=== PATIENT | female | born 1995 | race Caucasian/White ===

== ENCOUNTER → 2016-08-27 | Outpatient (CLI) | payer BC, MEDICAID ==
--- OUTSIDE RECORDS SUMMARY | 2016-08-27 08:21 | XMS REPORT ---
Author Author SHAHZAD TOM [facility] [place] eClinicalWorks Address Unknown Phone Unavailable Care Team Providers Care Physician Interventional Cardiologist Name Role Phone SHAHZAD TOM Unavailable Allergies No Known Allergies Problems Problem Type Condition Code Onset Dates Condition Status Assessment Flu vaccine need Z23 Active Medications No Known Medications Procedures Procedure Coding System Code Date SINGLE IMMUNIZATION ADMIN CPT-4 55376 Jun 08, 2015 FLUARIX QUAD (3 & UP)-GSK CPT-4 08843 Jun 08, 2015 Results No Known Results Immunizations Vaccine Administration Date FLUARIX QUAD (3 & UP)-GSK-2014Jun 08, 2015 Summary Purpose eClinicalWorks Submission
--- NOTE | 2016-08-28 08:12 | ELECTROENCEPHALOPATHY REPORT ---
PROCEDURE PHYSICIAN: SYDNIE LANIER DATE OF PROCEDURE: 08/27/2016 Ms. Sherry Maza is a 21-year-old female who has had fainting spells since age 12 years. On 07/06/2016, patient felt like she was going to faint. She became dizzy, clammy and had a witnessed seizure by her lasting approximately 30 seconds. This study was requested to evaluate for epileptiform activity. The background rhythm consisted of 10 Hz, 60 to 90 microvolts in amplitude, bilaterally symmetrical over the vortex region which was reactive to eye opening. Intermix was no epileptiform activity. Some movement artifacts were present. The patient was awake, drowsy and asleep during this recording. Hyperventilation was performed and there was no build-up of diffuse or focal slow wave activity. Intermittent photic stimulation was done at various flash frequencies and no photic driving response was seen. IMPRESSION: This EEG is within normal limits in awake and sleepy states. No clear epileptiform activity is seen. A normal EEG does not exclude the diagnosis of seizure or epilepsy. Job ID: [id number] Dictated Date: 08/28/2016 07:45:08 Clock Assembler Date: 08/28/2016 08:10:23 / [email or web address]
== END ==
LOC: RT 08:17
PROVIDERS: ATTEND Psychiatry & Neurology Neurology
DX: R56.9 Unspecified convulsions (principal)

== ENCOUNTER 2017-02-06 16:05 | Inpatient (IN) | payer BC, MEDICAID ==
[~2017-02-06] VITALS: Ht 157.5 cm; Wt 83.9 kg
[2017-02-06] VITALS (24 sets, daily range): BP systolic 110–162; BP diastolic 62–92
[2017-02-06] MEDS ORDERED: D5 LR IV SOLUTION 1,000 ML IV ONE (16:39)
[2017-02-06] MEDS ORDERED: NS (IVPB) 50 ML ONE (16:39)
[2017-02-06] MEDS ORDERED: AMPICILLIN 2000 MG INJECTION (IM/IV) ONE (16:39)
[2017-02-06] MEDS: D5 LR IV SOLUTION 1,000 ML IV SCH (17:15)
[2017-02-06] MEDS: AMPICILLIN INJECTION 2,000 MG in NS (IVPB) 50 ML IV SCH ×2 (17:15→20:35)
[2017-02-06] MEDS ORDERED: OXYTOCIN/NORMAL SALINE 500 ML IV SCH (17:34)
[2017-02-06 17:42] LABS: BASOPHILS % (AUTO) 0 % (0-10); EOSINOPHILS # (AUTO) 0.1 10^3/uL (0.0-0.3); EOSINOPHILS % (AUTO) 1 % (0-10); LYMPHOCYTES # (AUTO) 2.8 X 10^3 (1.0-4.0); LYMPHOCYTES % (AUTO) 19 % (12-44); MEAN CORPUSCULAR HEMOGLOBIN 30 PG (25-34); MEAN CORPUSCULAR HGB CONC 33 G/DL (32-36); MEAN CORPUSCULAR VOLUME 92 FL (80-99); MEAN PLATELET VOLUME 11.2 FL (7.4-10.4); MONOCYTES # (AUTO) 1.2 X 10^3 (0.0-1.0); MONOCYTES % (AUTO) 8 % (0-12); NEUTROPHILS # (AUTO) 10.6 X 10^3 (1.8-7.8); NEUTROPHILS % (AUTO) 72 % (42-75); PLATELET COUNT 277 10^3/uL (130-400); RED BLOOD COUNT 4.02 10^6/uL (4.35-5.85); RED CELL DISTRIBUTION WIDTH 14.2 % (10.0-14.5); WHITE BLOOD COUNT 14.6 10^3/uL (4.3-11.0)
[2017-02-06] MEDS ORDERED: MINERAL OIL CONCENTRATE 99.9% 15 ML UDC TOP PRN (17:45)
[2017-02-06] MEDS ORDERED: LIDOCAINE/EPI 1%-1:200,000 (XYLOCAINE) 30 ML VIAL INJ PRN (17:45)
[2017-02-06] MEDS ORDERED: LACTATED RINGERS 1,000 ML IV ONE ×2 (18:05→20:36)
[2017-02-06] MEDS ORDERED: SUFENTA 0.6MCG/ML BUPIVA 0.125 100 ML ONE (18:05)
[2017-02-06 18:10] LABS: BAND NEUTROPHILS 68 %; BASOPHILS % (MANUAL) 0 %; EOSINOPHILS % (MANUAL) 1 %; LYMPHOCYTES % (MANUAL) 25 %; NEUTROPHILS % (MANUAL) 3 %
[2017-02-06] MEDS ORDERED: NALOXONE 0.4 MG/ML 1 ML (NARCAN) VIAL IM PRN (20:45)
[2017-02-06] MEDS ORDERED: ONDANSETRON 4 MG/2 ML (SDV) Z0FRAN IV PRN (20:45)
[2017-02-06] MEDS ORDERED: diphenhydrAMINE 50 MG/ML INJ (BENADRYL) IV PRN (20:45)
[2017-02-06] MEDS ORDERED: NALOXONE 0.4 MG/ML 1 ML (NARCAN) VIAL IV PRN (20:45)
[2017-02-06] MEDS ORDERED: EPIDURAL (SUFENTA 0.6MCG/ML BUPIVA 0.125%) 100 ML BAG EPI PRN (20:45)
[2017-02-06] MEDS ORDERED: CATHETER FLUSH 10 ML SYR IV PRN (20:45)
[2017-02-06] MEDS: OXYTOCIN/NORMAL SALINE 500 ML IV SCH (20:52)
[2017-02-06] MEDS: AMPICILLIN INJECTION 1,000 MG in NS (IVPB) 50 ML IV SCH (21:04)
[2017-02-06] MEDS ORDERED: CATHETER FLUSH 10 ML SYR IV SCH (22:00)
[2017-02-07] VITALS (44 sets, daily range): BP systolic 91–135; BP diastolic 47–83
[2017-02-07] MEDS: AMPICILLIN INJECTION 1,000 MG in NS (IVPB) 50 ML IV SCH (01:18)
[2017-02-07] MEDS: D5 LR IV SOLUTION 1,000 ML IV SCH (01:26)
[2017-02-07] MEDS ORDERED: OXYTOCIN/NORMAL SALINE 500 ML IV SCH (03:32)
--- NOTE | 2017-02-07 03:38 | OB Labor & Delivery Record ---
L&D History Date of Service Date of Service: Feb 07, 2017 History Expected Date of Delivery: Feb 13, 2017 Hx : 3 Hx Para: 1 Complications Events: Routine care Operative Indications (Cesarea: N/A-Vaginal Delivery Intrapartal Events: None L&D Stage1 Monitors and Tracing Monitor Mode: External Heart Rate: 135 Monitor Accelerations: Uniform Monitor Decelerations: Variable Station: -2 Mcc Variability: Average (6-10) Short Term Variability: Present Presentation: Vertex Vital Signs VS - Last 72 Hours, by Label 02/06/17 02/06/17 02/06/17 02/06/17 16:20 17:30 18:00 18:28 Temp 99.9 Pulse 117 99 99 103 Resp 18 18 18 18 B/P (MAP) 121/67 115/72 117/73 130/80 Pulse Ox 100 O2 Delivery Room Air Room Air Room Air Room Air 02/06/17 02/06/17 02/06/17 02/06/17 18:30 18:32 18:37 18:38 Pulse 102 113 94 88 Resp 18 18 18 18 B/P (MAP) 130/80 141/92 123/79 128/78 Pulse Ox 98 100 99 O2 Delivery Room Air Room Air Room Air Room Air 02/06/17 02/06/17 02/06/17 02/06/17 18:45 19:00 19:30 20:00 Temp 98.0 Pulse 107 108 123 110 Resp 18 18 18 18 B/P (MAP) 162/65 114/64 111/66 Pulse Ox 99 99 100 100 O2 Delivery Room Air Room Air Room Air Room Air 02/06/17 02/06/17 02/06/17 02/06/17 20:30 21:00 21:15 21:30 Pulse 100 110 111 110 Resp 18 18 18 18 B/P (MAP) 128/71 118/65 136/62 128/69 Pulse Ox 100 99 98 99 O2 Delivery Room Air Room Air Room Air Room Air 02/06/17 02/06/17 02/06/17 02/07/17 21:45 22:00 22:15 02:42 Pulse 107 110 100 91 Resp 18 18 18 18 B/P (MAP) 114/72 126/79 128/76 115/75 Pulse Ox 99 98 99 99 O2 Delivery Room Air Room Air Room Air Room Air Rupture of Membranes Spontaneous Ruture of Membrane: Yes Amniotic Membrane Rupture Time: 444 Amniotic Fluid Membrane Tests: Nitrazine Positive Vaginal Bleeding Description: Normal Show Induction/Anesthesia Epidural Cath Placement - Time: 1836 Progress/Notes Patient SROM 0445 and presented to L &D at 4 pm after awaiting contraction pattern to start. GBS + urine, started on amp. After 4 hrs of first dose pitocin augmentation was used due to dysfunctional contraction pattern. L&D Stage2 Stage Two Stage II Date: Feb 07, 2017 Monitors and Tracing Monitor Mode: External Heart Rate: 135 Monitor Accelerations: Uniform Monitor Decelerations: Variable Mcc Variability: Average (6-10) Short Term Variability: Present Position: Right Occiput Anterior Presentation: Vertex Cord Descript/Complications Cord Vessel Description: 3 Vessels Delivery Type Delivery Method: Spontaneous Vaginal Anterior Shoulder: Right Episiotomy/Perineal Laceration Laceraction(s)/Extensions: Yes Episiotomy Description: Midline, 1st degree (perineal and clitoral lacerations) Location Modifier: Medial Degree (describe repair) both repaired using 3-0 vicryl rapide in normal fashion Condition of Delivery 1 minute Comment: 8 5 minute Comment: 9 Condition of Condition of : Living Exam: No Observed Abnormalities live male weight 7lbs 6 oz Resuscitation Resuscitation: N/A - Spontaneous Resp L&D Stage3 Stage Three Stage III Date: Feb 07, 2017 Pictocin Pitocin Administration Comment: 2151-pitocin wide open at delivery of placenta Placenta Delivery Placenta Delivery: Spontaneous Delivery Summary Summary blood loss >1000ml: No Vaginal blood loss >500ml: No 350 Attending at delivery: Miah Smith DO Condition of Delivery Examined: Cervix Examined, Uterus Explored Post Hemorrhage: No Condition of Mother stable Condition of (s) stable MIAH SMITH DO Feb 07, 2017 03:38
--- NOTE | 2017-02-07 03:40 | History & Physical-OB ---
OB - Chief Complaint & HPI Date/Time Date of Admission: Date of Admission: Feb 06, 2017 at 16:40 Time Seen by Provider: 16:30 Chief Complaint/History OB-Reason for Admission/Chief: Rupture of Membranes Hx : 3 Hx Para: 1 Expected Date of Delivery: Feb 13, 2017 Gestational Age in Weeks: 39 Gestational Age in Days: 0 Admission Nurse Assessment Rev: Yes History of Labs B pos Antibody neg RI RPR NR HBsAg NR HIV NR GC neg GBS + urine cx Allergies and Home Medications Allergies Coded Allergies: No Known Drug Allergies (Unverified , 02/06/17) OB - History Hx of Present Care: Yes Ultrasounds: Normal mid trimester US Obstetrical Complications: None Medical Complications: None Obstetrical History Hx : 3 Hx Para: 1 Patient Past Medical History hx of SVT Social History/Family History Recent Infectious Disease Expo: No OB - Admission Exam Physical Exam Date Seen by Provider: Feb 07, 2017 Time Seen by Provider: 17:30 Vitals: Vital Signs 02/06/17 02/07/17 20:00 02:42 Temp 98.0 Pulse 91 Resp 18 B/P (MAP) 115/75 Pulse Ox 99 O2 Delivery Room Air HEENT: NCAT Heart: Rhythm Normal Lungs: Clear Abdomen: Gravid Extremities: Normal Reflexes: Normal Cervical Dilatation: 5cm Effacement: 75% Station: -1 Membranes: Ruptured Amniotic Fluid: Clear Heart Rate: 130's Accelerations: Accelerations Present Decelerations: No Decelerations Short Term Variability: Present Care Home Variability: Average (6-25) Contractions on Admission: 6-10 Minutes Apart Intensity: Mild Labs Laboratory Tests Test 02/06/17 17:30 Range/Units White Blood Count 14.6 H 4.3-11.0 10^3/uL Red Blood Count 4.02 L 4.35-5.85 10^6/uL Hemoglobin 12.2 11.5-16.0 G/DL Hematocrit 37 35-52 % Mean Corpuscular Volume 92 80-99 FL Mean Corpuscular Hemoglobin 30 25-34 PG Mean Corpuscular Hemoglobin Concent 33 32-36 G/DL Red Cell Distribution Width 14.2 10.0-14.5 % Platelet Count 277 130-400 10^3/uL Mean Platelet Volume 11.2 H 7.4-10.4 FL Neutrophils (%) (Auto) 72 42-75 % Lymphocytes (%) (Auto) 19 12-44 % Monocytes (%) (Auto) 8 0-12 % Eosinophils (%) (Auto) 1 0-10 % Basophils (%) (Auto) 0 0-10 % Neutrophils # (Auto) 10.6 H 1.8-7.8 X 10^3 Lymphocytes # (Auto) 2.8 1.0-4.0 X 10^3 Monocytes # (Auto) 1.2 H 0.0-1.0 X 10^3 Eosinophils # (Auto) 0.1 0.0-0.3 10^3/uL Basophils # (Auto) 0.0 0.0-0.1 10^3/uL Neutrophils % (Manual) 3 % Lymphocytes % (Manual) 25 % Monocytes % (Manual) 3 % Eosinophils % (Manual) 1 % Basophils % (Manual) 0 % Band Neutrophils 68 % Blood Morphology Comment NORMAL OB - Assessment/Plan/Diagnosis Assessment Assessment: rupture of membranes Plan Plan: Expectant Management Other Plan Antibiotics ordered will augment labor if no spontaneous labor after 4 hrs of first dose. Discharge Diagnosis Diagnosis: 21 yo @ 39.1 SROM GBS + urine cx MIAH SMITH DO Feb 07, 2017 03:40
[2017-02-07] MEDS ORDERED: BENZOCAINE/MENTHOL (DERMOPLAST) 56 ML CAN TP PRN (03:45)
[2017-02-07] MEDS ORDERED: MEASLES,MUMPS,RUBELLA 1 EA INJ SQ ONE (03:45)
[2017-02-07] MEDS ORDERED: WITCH HAZEL(TUCKS) 40 EA JAR TOP PRN (03:45)
[2017-02-07] MEDS ORDERED: TETANUS,DIPTH,PERTUSS P/F (BOOSTRIX) 0.5 ML VIAL IM ONE (03:45)
[2017-02-07] MEDS ORDERED: APAP 300 MG/CODEINE 30 MG (TYLENOL #3) TAB PO PRN (03:45)
[2017-02-07] MEDS ORDERED: DIBUCAINE (NUPERCAINAL) 1% OINT 30 GM TOP PRN (03:45)
[2017-02-07] MEDS: OXYTOCIN/NORMAL SALINE 500 ML IV SCH (03:57)
[2017-02-07] MEDS: IBUPROFEN 600 MG (MOTRIN) TAB PO SCH ×4 (05:17→23:59)
[2017-02-07] MEDS ORDERED: CATHETER FLUSH 10 ML SYR IV SCH (06:00)
[2017-02-07] MEDS: FERROUS SULF 325 MG (IRON) TAB PO SCH (08:23)
[2017-02-07] MEDS: PRENATAL VITAMIN 1 EA TAB PO SCH (08:23)
[2017-02-07] MEDS: DOCUSATE SODIUM 100 MG (COLACE) CAP PO SCH ×2 (08:23→20:16)
--- NOTE | 2017-02-07 13:04 | Discharge Inst-Women's Service ---
Discharge Inst-Women's Serv Depart Medication/Instructions New, Converted or Re-Newed RX: RX on Chart Consults/Follow Up Additional Follow Up: Yes Orders/Referrals Dr. Smith in 6 weeks Activity Activity: Activity as Tolerated Driving Instructions: No Driving for 1 Week NO SMOKING: NO SMOKING Nothing Inside Vagina: No Douching, No Kiester, No Tampons Diet Discharge Diet: No Restrictions Symptoms to Report to : Bleeding Excessive, Pain Increased, Fever Over 101 Degrees F, Vaginal Bleeding Increase, Questions/Concerns For Any Problems or Questions: Contact Your Physician Skin/Wound Care Infection Signs and Symptoms: Increased Redness Bathing Instructions: Shower (x 2 weeks) MIAH SMITH DO Feb 07, 2017 1:04 pm
[2017-02-07] MEDS ORDERED: BENZ56AE2 TP (13:06)
[2017-02-07] MEDS ORDERED: DOCU100C37 PO (13:06)
[2017-02-07] MEDS ORDERED: IBUP-1773 PO (13:06)
[2017-02-07] MEDS ORDERED: ACET1TAB43 PO (13:06)
--- NOTE | 2017-02-07 14:59 | Anesthesia-Regional Post-Op ---
Regional Patient Condition Mental Status: Alert, Oriented x3 Circulation: Same as Pre-Op Headache: Absent Sensation: Full Recovery Motor Block: Absent Post Op Complications Complications None Follow Up Care/Instructions Patient Instructions None needed. Anesthesia/Patient Condition Patient is doing well, no complaints, stable vital signs, no apparent adverse anesthesia problems. No complications reported per nursing. JÚNIOR WICK CRNA Feb 07, 2017 14:58
[2017-02-08] VITALS: BP 127/68
[2017-02-08 06:25] VITALS: BP 112/72
[2017-02-08] MEDS: IBUPROFEN 600 MG (MOTRIN) TAB PO SCH ×2 (06:28→13:05)
[2017-02-08 06:53] LABS: BASOPHILS % (AUTO) 0 % (0-10); EOSINOPHILS # (AUTO) 0.2 10^3/uL (0.0-0.3); EOSINOPHILS % (AUTO) 2 % (0-10); LYMPHOCYTES # (AUTO) 3.8 X 10^3 (1.0-4.0); LYMPHOCYTES % (AUTO) 30 % (12-44); MEAN CORPUSCULAR HEMOGLOBIN 30 PG (25-34); MEAN CORPUSCULAR HGB CONC 32 G/DL (32-36); MEAN CORPUSCULAR VOLUME 93 FL (80-99); MEAN PLATELET VOLUME 10.7 FL (7.4-10.4); MONOCYTES # (AUTO) 0.7 X 10^3 (0.0-1.0); MONOCYTES % (AUTO) 6 % (0-12); NEUTROPHILS % (AUTO) 63 % (42-75); PLATELET COUNT 236 10^3/uL (130-400); RED BLOOD COUNT 3.74 10^6/uL (4.35-5.85); RED CELL DISTRIBUTION WIDTH 14.2 % (10.0-14.5); WHITE BLOOD COUNT 12.8 10^3/uL (4.3-11.0)
--- NOTE | 2017-02-08 08:51 | Postpartum Progress Note ---
Note Note Day # 1 Subjective: Patient is without complaints. Ambulating, voiding. Tolerating a regular diet without nausea or vomiting. Normal lochia. Pain is well controlled with oral pain medications. Breast feeding. Wants to stay if needs to stay today. Objective: VS - Last 72 Hours, by Label 02/06/17 02/06/17 02/06/17 02/06/17 16:20 17:30 18:00 18:28 Temp 99.9 Pulse 117 99 99 103 Resp 18 18 18 18 B/P (MAP) 121/67 115/72 117/73 130/80 Pulse Ox 100 O2 Delivery Room Air Room Air Room Air Room Air 02/06/17 02/06/17 02/06/17 02/06/17 18:30 18:32 18:37 18:38 Pulse 102 113 94 88 Resp 18 18 18 18 B/P (MAP) 130/80 141/92 123/79 128/78 Pulse Ox 98 100 99 O2 Delivery Room Air Room Air Room Air Room Air 02/06/17 02/06/17 02/06/17 02/06/17 18:45 19:00 19:30 20:00 Temp 98.0 Pulse 107 108 123 110 Resp 18 18 18 18 B/P (MAP) 162/65 114/64 111/66 Pulse Ox 99 99 100 100 O2 Delivery Room Air Room Air Room Air Room Air 02/06/17 02/06/17 02/06/17 02/06/17 20:30 21:00 21:15 21:30 Pulse 100 110 111 110 Resp 18 18 18 18 B/P (MAP) 128/71 118/65 136/62 128/69 Pulse Ox 100 99 98 99 O2 Delivery Room Air Room Air Room Air Room Air 02/06/17 02/06/17 02/06/17 02/06/17 21:45 22:00 22:15 22:30 Pulse 107 110 100 91 Resp 18 18 18 18 B/P (MAP) 114/72 126/79 128/76 115/75 Pulse Ox 99 98 99 99 O2 Delivery Room Air Room Air Room Air Room Air 02/06/17 02/06/17 02/06/17 02/06/17 22:45 23:00 23:15 23:30 Pulse 90 96 98 101 Resp 18 18 18 18 B/P (MAP) 119/64 111/64 110/65 119/75 Pulse Ox 99 99 99 99 O2 Delivery Room Air Room Air Room Air Room Air 02/06/17 02/07/17 02/07/17 02/07/17 23:45 00:00 00:03 00:06 Pulse 98 99 90 95 Resp 18 18 18 18 B/P (MAP) 130/75 134/83 125/77 127/78 Pulse Ox 99 100 99 100 O2 Delivery Room Air Room Air Room Air Room Air 02/07/17 02/07/17 02/07/17 02/07/17 00:09 00:12 00:15 00:18 Pulse 96 96 102 90 Resp 18 18 18 18 B/P (MAP) 122/75 130/79 124/70 129/73 Pulse Ox 100 100 100 O2 Delivery Room Air Room Air Room Air Room Air 02/07/17 02/07/17 02/07/17 02/07/17 00:25 00:30 00:35 00:40 Pulse 97 84 101 90 Resp 18 18 18 18 B/P (MAP) 125/71 127/72 117/67 106/60 Pulse Ox 100 100 100 100 O2 Delivery Room Air Room Air Room Air Room Air 02/07/17 02/07/17 02/07/17 02/07/17 00:45 00:48 00:52 00:53 Pulse 97 88 47 Resp 18 18 18 B/P (MAP) 109/52 106/54 91/47 Pulse Ox 99 89 93 O2 Delivery Room Air Room Air Room Air Non Rebreather O2 Flow Rate 15.00 02/07/17 02/07/17 02/07/17 02/07/17 00:55 01:00 01:05 01:10 Temp 96.8 Pulse 87 76 82 88 Resp 18 18 18 18 B/P (MAP) 116/62 119/52 110/56 120/72 Pulse Ox 95 100 100 95 O2 Delivery Non Rebreather Non Rebreather Non Rebreather Non Rebreather O2 Flow Rate 15.00 15.00 15.00 15.00 02/07/17 02/07/17 02/07/17 02/07/17 01:15 01:20 01:25 01:30 Pulse 87 97 90 94 Resp 18 18 18 18 B/P (MAP) 100/61 102/58 126/59 124/64 Pulse Ox 100 100 100 100 O2 Delivery Non Rebreather Non Rebreather Non Rebreather Non Rebreather O2 Flow Rate 15.00 15.00 15.00 15.00 02/07/17 02/07/17 02/07/17 02/07/17 01:36 01:40 01:45 01:55 Pulse 86 100 81 84 Resp 18 18 18 18 B/P (MAP) 131/74 100/57 108/63 105/59 Pulse Ox 100 95 100 100 O2 Delivery Non Rebreather Non Rebreather Non Rebreather Non Rebreather O2 Flow Rate 15.00 15.00 15.00 15.00 02/07/17 02/07/17 02/07/17 02/07/17 02:00 02:10 02:14 02:15 Pulse 86 93 86 Resp 18 18 18 B/P (MAP) 106/77 106/60 Pulse Ox 100 100 100 O2 Delivery Non Rebreather Non Rebreather Room Air Room Air O2 Flow Rate 15.00 15.00 02/07/17 02/07/17 02/07/17 02/07/17 02:30 02:45 03:00 03:12 Pulse 101 99 102 157 Resp 18 18 18 18 B/P (MAP) 127/63 130/68 127/64 135/80 Pulse Ox 100 100 100 91 O2 Delivery Room Air Room Air Room Air Room Air 02/07/17 02/07/17 02/07/17 02/07/17 03:24 03:39 03:54 03:59 Temp 98.2 Pulse 108 107 95 Resp 18 18 18 B/P (MAP) 123/58 119/64 103/58 O2 Delivery Room Air Room Air Room Air 02/07/17 02/07/17 02/07/17 02/07/17 04:09 04:24 04:39 05:17 Pulse 98 93 84 93 Resp 18 18 18 18 B/P (MAP) 107/56 113/56 104/52 109/56 O2 Delivery Room Air Room Air Room Air Room Air 02/07/17 02/07/17 02/07/17 02/07/17 05:45 08:13 11:30 20:15 Temp 98.0 96.9 98.0 96.5 Pulse 92 98 77 72 Resp 17 18 18 18 B/P (MAP) 107/66 103/55 107/57 113/77 Pulse Ox 98 96 100 O2 Delivery Room Air Room Air 02/08/17 02/08/17 00:00 06:25 Temp 96.4 98.0 Pulse 85 75 Resp 18 18 B/P (MAP) 127/68 112/72 Pulse Ox 98 99 Physical Exam: General - Alert and oriented, no apparent distress Abdomen - Soft, appropriately tender to palpation, non-distended, fundus firm at umbilicus Laboratory Tests Test 02/08/17 06:44 Range/Units White Blood Count 12.8 H 4.3-11.0 10^3/uL Red Blood Count 3.74 L 4.35-5.85 10^6/uL Hemoglobin 11.1 L 11.5-16.0 G/DL Hematocrit 35 35-52 % Mean Corpuscular Volume 93 80-99 FL Mean Corpuscular Hemoglobin 30 25-34 PG Mean Corpuscular Hemoglobin Concent 32 32-36 G/DL Red Cell Distribution Width 14.2 10.0-14.5 % Platelet Count 236 130-400 10^3/uL Mean Platelet Volume 10.7 H 7.4-10.4 FL Neutrophils (%) (Auto) 63 42-75 % Lymphocytes (%) (Auto) 30 12-44 % Monocytes (%) (Auto) 6 0-12 % Eosinophils (%) (Auto) 2 0-10 % Basophils (%) (Auto) 0 0-10 % Neutrophils # (Auto) 8.0 H 1.8-7.8 X 10^3 Lymphocytes # (Auto) 3.8 1.0-4.0 X 10^3 Monocytes # (Auto) 0.7 0.0-1.0 X 10^3 Eosinophils # (Auto) 0.2 0.0-0.3 10^3/uL Basophils # (Auto) 0.0 0.0-0.1 10^3/uL Assessment: 21 y/o post- day # 1, status post spontaneous vaginal delivery. Recovering well, hemodynamically stable Rh+ Plan: Routine care. Encourage breast feeding. Encourage ambulation. Plan for discharge today, can stay until tomorrow if stays. Vitals - Labs Vital Signs - I&O Vital Signs Date Time Temp Pulse Resp B/P (MAP) Pulse Ox O2 Delivery O2 Flow Rate FiO2 02/08/17 06:25 98.0 75 18 112/72 99 02/08/17 00:00 96.4 85 18 127/68 98 02/07/17 20:15 96.5 72 18 113/77 100 02/07/17 11:30 98.0 77 18 107/57 Labs Laboratory Tests 02/08/17 06:44: White Blood Count 12.8H, Red Blood Count 3.74L, Hemoglobin 11.1L, Hematocrit 35 , Mean Corpuscular Volume 93, Mean Corpuscular Hemoglobin 30, Mean Corpuscular Hemoglobin Concent 32, Red Cell Distribution Width 14.2, Platelet Count 236, Mean Platelet Volume 10.7H, Neutrophils (%) (Auto) 63, Lymphocytes (%) (Auto) 30 , Monocytes (%) (Auto) 6, Eosinophils (%) (Auto) 2, Basophils (%) (Auto) 0, Neutrophils # (Auto) 8.0H, Lymphocytes # (Auto) 3.8, Monocytes # (Auto) 0.7, Eosinophils # (Auto) 0.2, Basophils # (Auto) 0.0 HELDER BHAKTA MD Feb 08, 2017 08:51
[2017-02-08 09:00] VITALS: BP 117/82
[2017-02-08] MEDS: FERROUS SULF 325 MG (IRON) TAB PO SCH (09:00)
[2017-02-08] MEDS: DOCUSATE SODIUM 100 MG (COLACE) CAP PO SCH (09:00)
[2017-02-08] MEDS: PRENATAL VITAMIN 1 EA TAB PO SCH (09:00)
[2017-02-08 12:30] VITALS: BP 109/70
--- OUTSIDE RECORDS SUMMARY | 2017-02-11 09:07 | XMS REPORT ---
Author Author SHAHZAD TOM [facility] eClinicalWorks Address Unknown Phone Unavailable Care Team Providers Care It Compliance Analyst Name Role Phone SHAHZAD TOM Unavailable Allergies No Known Allergies Problems Problem Type Condition Code Onset Dates Condition Status Assessment Flu vaccine need Z23 Active Medications No Known Medications Procedures Procedure Coding System Code Date SINGLE IMMUNIZATION ADMIN CPT-4 29452 Jun 08, 2015 FLUARIX QUAD (3 & UP)-GSK CPT-4 30569 Jun 08, 2015 Results No Known Results Immunizations Vaccine Administration Date FLUARIX QUAD (3 & UP)-GSK-2014Jun 08, 2015 Summary Purpose eClinicalWorks Submission
--- OUTSIDE RECORDS SUMMARY | 2017-02-11 09:07 | XMS REPORT | Continuity of Care Document ---
Author Author [facility] Address Unknown Phone Unavailable Allergies Medications Problems Procedures Results Test Result Range CBC WITHOUT DIFFERENTIAL - 10/03/15 09:34 HEMATOCRIT 43.0 % 34.9-44.5 HEMOGLOBIN 14.0 g/dL 12.0-15.5 MEAN CORPUSCULAR HEMOGLOBIN 29.7 pg 26.0- 34.0 MEAN CORPUSCULAR HEMOGLOBIN CONC 32.5 g/dL 31.0-37.0 MEAN CORPUSCULAR VOLUME 91.3 fL 81.6- 98.3 PLATELET COUNT 389 10E9/L 150-450 RED BLOOD CELL COUNT 4.71 10E12/L 3.90- 5.03 RED CELL DISTRIBUTION WIDTH 12.9 % 11.9- 15.5 [id number] 9.2 10E9/L 3.5-10.5 COMPREHENSIVE METABOLIC PANEL - 10/03/15 09:34 ALBUMIN 4.7 g/dL 3.4-4.8 ALKALINE PHOSPHATASE 103 U/L 29-122 ALT 15 U/L 10-46 AST 21 U/L 16-37 BILIRUBIN,TOTAL 0.3 mg/dL 0.2-1.3 BUN BLOOD 12 mg/dL 6-20 CALCIUM 9.7 mg/dL 8.7-10.5 CHLORIDE 103 mmol/L 99-111 CO2 28 mmol/L 20-36 CREATININE 0.65 mg/dL 0.40-1.10 EGFR > mL/min >59 GLUCOSE 84 mg/dL 74-106 POTASSIUM 4.4 mmol/L 3.6-4.9 PROTEIN TOTAL 7.3 g/dL 6.4-8.3 SODIUM 140 mmol/L 136-145 LIPID PANEL - 10/03/15 09:34 CHOLESTEROL 211 mg/dL <=200 HDL CHOLESTEROL 49 mg/dL 40-90 LDL CHOLESTEROL 139 mg/dL NON-HDL CHOLESTEROL 162 mg/dL 0-129 TRIGLYCERIDE 113 mg/dL 0-149 Encounters ACCT No. Visit Date/Time Discharge Status Pt. Type Provider Facility Loc./Unit Complaint [id number] 10/03/2015 09:36:30 ACT Outpatient [facility] 823 [id number] 10/03/2015 09:30:11 ACT Outpatient [facility] 823 [id number] 10/03/2015 08:22:48 ACT Outpatient MICHELLE GOSS [place] [id number]
== END 2017-02-08 14:30 | disposition home or self-care (01) | DRG 775 ==
LOC: LDRP 16:05 → WSo 16:05 → LDRP 16:40 → WS 02-07 05:40
PROVIDERS: ADMIT Obstetrics & Gynecology; ATTEND Obstetrics & Gynecology
PROC: 0HQ9XZZ Repair Perineum Skin, External Approach (ICD-10-PCS; principal; 2017-02-07)
PROC: 10E0XZZ Delivery of Products of Conception, External Approach (ICD-10-PCS; 2017-02-07)
DX: O99.824 Streptococcus B carrier state complicating childbirth (principal); O70.0 First degree perineal laceration during delivery; Z3A.39 39 weeks gestation of pregnancy; Z37.0 Single live birth
CPT/HCPCS: 36415; 85007; 85025; 85027; 86850; 86900; 86901; 99212

== ENCOUNTER 2017-12-15 02:35 | Emergency (ER) | payer BC, MEDICAID ==
[~2017-12-15] VITALS: Ht 154.9 cm; Wt 77.1 kg
[~2017-12-15 02:35] MED LIST: ACET1TAB43 PO; BENZ56AE2 TP; DOCU100C37 PO; IBUP-1773 PO
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
[2017-12-15 03:42] VITALS: BP 105/57
== END 2017-12-15 03:42 | disposition home or self-care (01) ==
LOC: EDUNIT# 02:35 → ER 02:37
DX: R55 Syncope and collapse (principal); F41.9 Anxiety disorder, unspecified; Z82.49 Family history of ischemic heart disease and other diseases of the circulatory system
CPT/HCPCS: 99283